=== PATIENT | male | born 1985 | race Caucasian/White ===

== ENCOUNTER 2020-04-06 22:42 | Outpatient (REF) | payer SELFPAY ==
[2020-04-09 01:35] LABS: SARS-CoV-2 RNA Undetected (Undetected); SARS-CoV-2 Specimen Source Nasal
== END 2020-04-06 23:02 ==
LOC: NCHCN 22:42
PROVIDERS: PCP Internal Medicine; Visit Provider Physician Assistant
DX: Z20.828 Contact with and (suspected) exposure to other viral communicable diseases (principal)
CPT/HCPCS: U0003

== ENCOUNTER 2020-10-21 13:13 | Outpatient (REF) | payer BC, SELFPAY ==
[2020-10-22 01:17] LABS: COVID-19 RT-PCR UVMMC Result Negative (Negative)
== END 2020-10-21 13:14 | disposition home or self-care (01) ==
LOC: NCHCN 13:13
PROVIDERS: PCP Internal Medicine; Visit Provider Internal Medicine
DX: Z20.822 Contact with and (suspected) exposure to COVID-19 (principal); R05 Cough
CPT/HCPCS: U0003

== ENCOUNTER 2020-10-28 17:52 | Outpatient (REF) | payer BC, SELFPAY ==
[2020-10-29 10:38] LABS: COVID-19 RT-PCR UVMMC Result Negative (Negative)
== END 2020-10-28 17:53 | disposition home or self-care (01) ==
LOC: NCHCN 17:52
PROVIDERS: PCP Internal Medicine; Visit Provider Physician Assistant
DX: Z20.822 Contact with and (suspected) exposure to COVID-19 (principal)
CPT/HCPCS: U0003

== ENCOUNTER 2020-11-04 14:13 | Outpatient (CLI) | payer OTHER, SELFPAY ==
--- NOTE | 2020-11-04 14:30 | DI.RAD_ITS ---
EXAM: XR FOREARM RT CLINICAL HISTORY: PAIN OF RT FOREARM S/P CRUSH INJURY, 10/18/20, AT WORK. TECHNIQUE: 2D digital imaging was performed. COMPARISON: No exams were available for comparison FINDINGS: There is no evidence of fracture nor dislocation. No evidence of elbow joint effusion nor swelling o f the olecranon bursa. Radial head appears unremarkable. No radiopaque foreign body. IMPRESSION: No fracture evident DATA REPOSITORY: RADIATION DOSE DELIVERED:
== END 2020-11-04 14:33 ==
PROVIDERS: PCP Internal Medicine; Visit Provider Nurse Practitioner Family
DX: M79.631 Pain in right forearm (principal)
CPT/HCPCS: 73090

== ENCOUNTER 2021-07-14 19:06 | Outpatient (REF) | payer BC, SELFPAY ==
[2021-07-14 19:16] LABS: HCT 44.3 % (40.0-50.0); HGB 13.7 g/dL (13.5-17.5); MCH 28.2 pg (27.0-33.0); MCHC 30.9 % (32.0-36.0); MCV 91.2 fL (80-95); MPV 11.1 fL (8.0-11.0); Platelet Count 340 10^3/uL (130-400); RBC 4.86 10^6/uL (4.36-5.78); RDW 13.7 % (11.8-14.1); WBC 12.06 10^3/uL (4.4-10.8)
[2021-07-14 19:31] LABS: Anion Gap 8.6 mmol/L (3-11); BUN 16 mg/dL (7-18); CO2 28.4 mmol/L (21.0-32.0); Calcium 9.3 mg/dL (8.5-10.1); Chloride 103 mmol/L (98-107); Glucose 135 mg/dL (74-106); Potassium 4.1 mmol/L (3.5-5.1); Sodium 140 mmol/L (136-145)
== END 2021-07-14 19:07 | disposition home or self-care (01) ==
LOC: NCHCN 19:06
PROVIDERS: PCP Internal Medicine; Visit Provider Internal Medicine
DX: U07.1 COVID-19 (principal); I26.99 Other pulmonary embolism without acute cor pulmonale
CPT/HCPCS: 80048; 85027

== ENCOUNTER 2021-09-16 17:09 | Outpatient (REF) | payer BC, SELFPAY ==
[2021-09-16 21:10] LABS: HCT 43.3 % (40.0-50.0); HGB 13.6 g/dL (13.5-17.5); MCH 28.2 pg (27.0-33.0); MCHC 31.4 % (32.0-36.0); MCV 89.6 fL (80-95); Platelet Count 263 10^3/uL (130-400); RBC 4.83 10^6/uL (4.36-5.78); RDW 13.2 % (11.8-14.1); RDW-SD 43.6 fL; WBC 10.34 10^3/uL (4.4-10.8)
[2021-09-16 21:29] LABS: Hemoglobin A1C 5.7 % (<5.7)
[2021-09-16 21:37] LABS: ALT 28 U/L (16-63); AST 11 U/L (15-37); Albumin 3.5 g/dL (3.4-5.0); Alkaline Phosphatase 123 U/L (46-116); Anion Gap 9.8 mmol/L (3-11); BUN 21 mg/dL (7-18); Bilirubin, Total 0.1 mg/dL (0.2-1.0); CO2 26.2 mmol/L (21.0-32.0); CREATININE 1.2 mg/dL (0.70-1.30); Calcium 9.2 mg/dL (8.5-10.1); Chloride 107 mmol/L (98-107); Glucose 100 mg/dL (74-106); Potassium 4.3 mmol/L (3.5-5.1); Sodium 143 mmol/L (136-145); Total Protein 7.1 g/dL (6.4-8.2)
[2021-09-16 21:53] LABS: D-Dimer 168 ng/mlFEU (<500)
[2021-09-19 06:28] LABS: Vitamin D 25 Total 10.3 ng/mL (30-100)
== END 2021-09-16 17:10 | disposition home or self-care (01) ==
LOC: NCHCN 17:09
PROVIDERS: PCP Internal Medicine; Visit Provider Internal Medicine
DX: U07.1 COVID-19 (principal); I26.99 Other pulmonary embolism without acute cor pulmonale
CPT/HCPCS: 80053; 82306; 85027; 83036; 85379